=== PATIENT | female | born 1960 | race Caucasian/White ===

== ENCOUNTER 2019-08-19 13:39 | Outpatient (CLI) | payer OTHER ==
--- NOTE | 2019-08-19 14:04 | ULT ---
US Soft Tissue Other History: Pain Comparison: None. Findings: Real-time grayscale evaluation of the left popliteal fossa was performed. No popliteal cyst is appreciated. Impression: No popliteal cyst appreciated. MRI may be beneficial if clinically warranted.
== END 2019-08-19 13:40 | disposition home or self-care (01) ==
LOC: BICULT 13:39
PROVIDERS: ATTEND Family Medicine
DX: M25.562 Pain in left knee (principal)
CPT/HCPCS: 76999

== ENCOUNTER 2020-05-09 13:37 | Outpatient (CLI) | payer OTHER ==
--- NOTE | 2020-05-09 14:31 | ULT ---
US Renal Bilateral STANDARD: 05/09/2020 12:00 AM CLINICAL HISTORY: Recurrent urinary tract infections. STUDY: Renal ultrasound COMPARISON: None. FINDINGS: Right kidney: Echogenicity: Normal. Masses/cysts: None. Hydronephrosis: None. Calcifications: None. Length: 12.3 cm Left kidney: Echogenicity: Normal. Masses/cysts: None. Hydronephrosis: None. Calcifications: None. Length: 12.2 cm Limited visualization of the urinary bladder is unremarkable. IMPRESSION: Unremarkable renal ultrasound
== END 2020-05-09 13:38 | disposition home or self-care (01) ==
LOC: SCSULT 13:37 → BICULT 13:38
PROVIDERS: ATTEND Family Medicine
DX: N39.0 Urinary tract infection, site not specified (principal)
CPT/HCPCS: 76770

== ENCOUNTER 2020-06-01 08:38 | Outpatient (CLI) | payer OTHER ==
--- NOTE | 2020-06-01 16:18 | NM ---
EXAM: NM Parathyrd Planar W/Spect CT PROVIDED CLINICAL HISTORY: Hyperparathyroidism, unspecified. COMPARISON: None FINDINGS: CT SPECT images demonstrate a hypodense nodule left lobe of thyroid gland which is difficult to adequ ately measure on nonenhanced CT but appears to occupy the majority of the left lobe of the thyroid gland. This nodule in axial dimensions measures approximately 21 mm x 13 mm. There is evidence of inc reased uptake of radiotracer within this nodule. No additional areas of abnormal uptake of radiotracer are seen within either lobe of the thyroid gland. CT images demonstrate a mucous retention cyst in the left maxillary antrum. Postoperative changes rig ht shoulder are seen. Vascular calcifications are seen in the carotid arteries. Degenerative changes are seen in the spine. IMPRESSION: 1. Nodule left lobe of thyroid gland demonstrating uptake of radiotracer. Further evaluation with thy roid ultrasound is recommended. 2. There are no definite findings seen to suggest parathyroid adenoma based on this exam.
== END 2020-06-01 08:39 | disposition home or self-care (01) ==
LOC: NM 08:38
PROVIDERS: ATTEND Family Medicine
DX: E21.3 Hyperparathyroidism, unspecified (principal); E04.1 Nontoxic single thyroid nodule
CPT/HCPCS: 78072; A9500

== ENCOUNTER 2020-06-15 14:01 | Outpatient (CLI) | payer OTHER ==
--- NOTE | 2020-06-15 15:41 | ULT ---
EXAM: US Thyroid STANDARD PROVIDED CLINICAL HISTORY: Abnormal uptake within the thyroid gland on parathyroid scan. Thyroid ultrasound recommended. COMPARISON: Parathyroid scan on 06/01/2020. FINDINGS: Right lobe: Measurement-3.9 cm x 1.1 cm x 1.2 cm No nodules are seen in the right lobe of the thyroid gland. Left lobe: Measurement-3.8 cm x 1.9 cm x 1.5 cm A circumscribed heterogeneous nodule is seen involving the majority of the left lobe of the thyroid g land which measures 3 cm x 1.7 cm x 1.5 cm. This corresponds to area of uptake on parathyroid scan. Isthmus: Measurement-0.6 m in AP dimensions which is thickened IMPRESSION: TI RADS level 4 nodule left lobe of the thyroid gland. Fine-needle aspiration is recommended.
== END 2020-06-15 14:02 | disposition home or self-care (01) ==
LOC: BICULT 14:01
PROVIDERS: ATTEND Family Medicine
DX: R94.6 Abnormal results of thyroid function studies (principal); E04.1 Nontoxic single thyroid nodule
CPT/HCPCS: 76536

== ENCOUNTER 2020-06-28 12:05 | Outpatient (CLI) | payer OTHER ==
[2020-06-29 11:00] LABS: SARS-CoV-2 MS2 Positive; SARS-CoV-2 N Gene Negative; SARS-CoV-2 S Gene Negative; SARS-CoV-2 by NAA Not Detected (NotDetected); SARS-CoV-2 orf1ab Negative
== END 2020-06-28 12:06 | disposition home or self-care (01) ==
LOC: LABBT 12:05
PROVIDERS: ATTEND Family Medicine
DX: Z20.828 Contact with and (suspected) exposure to other viral communicable diseases (principal)
CPT/HCPCS: 87635; U0003

== ENCOUNTER 2020-07-02 09:17 | Day surgery (SDC) | payer OTHER ==
[2020-06-29 14:21] VITALS: BMI 46.3
[2020-07-02] MEDS ORDERED: Lidocaine 1% PF 5 ML VIAL ONE (10:13)
[2020-07-02] MEDS ORDERED: Sodium Bicarbonate 2.5 MEQ/5 ML VIAL ONE (10:14)
[2020-07-02 10:44] VITALS: BP 125/76; TEMP 98.1
--- NOTE | 2020-07-02 10:51 | ULT ---
Exam: Ultrasound guided fine-needle aspiration the left thyroid lobe COMPARISON: 06/15/2020 FINDINGS: Successful fine-needle aspiration of a solid hyperechoic mass in the left thyroid lobe. A t otal of 4, 25-gauge fine-needle aspirations were performed. No immediate or postprocedure complications TECHNIQUE: Consent obtained for ultrasound-guided fine-needle aspiration of a hyperechoic solid nodul e left thyroid lobe. Left neck was prepped and draped in a sterile fashion. 1% lidocaine, buffered with sodium bicarbonate was used for local anesthesia. Under ultrasound guidance, 4, 25-gauge fine-ne edle aspirations were performed. Patient tolerated the procedure well, without any postprocedure complications. IMPRESSION: Successful fine-needle aspiration. Final pathologic diagnosis is pending.
== END 2020-07-02 10:20 | disposition home or self-care (01) ==
LOC: ULT 09:17
PROVIDERS: ATTEND Family Medicine
PROC: 0G9G3ZX Drainage of Left Thyroid Gland Lobe, Percutaneous Approach, Diagnostic (ICD-10-PCS; principal; 2020-07-02)
DX: E04.1 Nontoxic single thyroid nodule (principal); E03.9 Hypothyroidism, unspecified; M19.90 Unspecified osteoarthritis, unspecified site; M10.9 Gout, unspecified; I10 Essential (primary) hypertension; F17.200 Nicotine dependence, unspecified, uncomplicated; E78.5 Hyperlipidemia, unspecified; E66.01 Morbid (severe) obesity due to excess calories; Z68.42 Body mass index [BMI] 45.0-49.9, adult; Z79.899 Other long term (current) drug therapy
CPT/HCPCS: 36415; 60100; 76942; 80053; 81001; 83970; 84439; 84443; 84481; 84550; 86376; 86800; 87086; 88173

== ENCOUNTER 2020-08-07 07:27 | Outpatient (CLI) | payer OTHER ==
[2020-08-07 08:09] LABS: Estimated GFR-MDRD - POC Greater than 90
--- NOTE | 2020-08-07 09:05 | CT ---
CT ABDOMEN AND PELVIS WITH AND WITHOUT IV CONTRAST: HISTORY: Hematuria with bilateral flank pain. FINDINGS: The lung bases are clear. The liver, spleen, pancreas, and adrenal glands are normal. No calcified gallstones are seen. No free air, free fluid, or lymphadenopathy is noted in the abdomen or pelvis. No calculi are seen in the kidneys, ureters, or the urinary bladder. No hydroureteral nephrosis is n oted on either side. There is normal contrast excretion to the ureters and urinary bladder. The patient is post hysterectomy. There are vascular calcifications without evidence of aneurysmal d ilatation of the abdominal aorta. The small bowel loops are not abnormally dilated. There is coloni c diverticulosis without diverticulitis. There are degenerative changes in the spine. IMPRESSION: 1. No CT evidence of urinary tract calculi/obstruction or renal mass. 2. Colonic diverticulosis. POS: OFF
[2020-08-07] MEDS ORDERED: Iopamidol 370 76% 100 ML VIAL ONE (10:16)
== END 2020-08-07 07:28 | disposition home or self-care (01) ==
LOC: BICCT 07:27
PROVIDERS: ATTEND Urology
DX: R31.29 Other microscopic hematuria (principal); K57.30 Diverticulosis of large intestine without perforation or abscess without bleeding
CPT/HCPCS: 74178; 82565; Q9967

== ENCOUNTER 2020-08-09 09:32 | Outpatient (CLI) | payer OTHER ==
--- NOTE | 2020-08-09 10:15 | ULT ---
EXAM: US Abdominal CLINICAL HISTORY: Right upper quadrant pain. COMPARISON: None. FINDINGS: Pancreas: Obscured by bowel gas IVC: Visualized IVC has a normal caliber. Aorta: Visualized aorta has a normal caliber. Liver:Increased echogenicity of liver likely due to areas of hepatic steatosis with additional areas of fatty sparing. Limited-for hepatic masses and intrahepatic biliary dilatation. Gallbladder: No sonographic evidence of cholelithiasis, gallbladder wall thickening or pericholecysti c fluid. Timmons's sign:Negative CBD: Limited evaluation the common bile duct. Portal vein: Patent. Appropriate directional flow. Right kidney: Normal cortical echotexture. No hydronephrosis Right kidney measuring 12.3 x 4.9 x 6. 0 cm in length. Left kidney: Normal cortical echotexture. No hydronephrosis. Incidental prominent right renal pelvis Left kidney measuring 5.8 x 12.3 x 5.3 cm in length Spleen: Normal echotexture, measuring 8.8 cm IMPRESSION: 1. Hepatic steatosis with areas of fatty sparing. 2. No sonographic evidence of cholelithiasis or cholecystitis. 3. No evidence of hydronephrosis. Incidental prominent right renal pelvis.
== END 2020-08-09 09:33 | disposition home or self-care (01) ==
LOC: BICULT 09:32
PROVIDERS: ATTEND Family Medicine
DX: R10.11 Right upper quadrant pain (principal); K76.0 Fatty (change of) liver, not elsewhere classified
CPT/HCPCS: 93975

== ENCOUNTER 2020-08-14 10:39 | Outpatient (CLI) | payer OTHER ==
[~2020-08-14 10:39] MED LIST: Iopamidol 370 76% 100 ML VIAL ONE
[2020-08-14 11:04] LABS: Estimated GFR-MDRD - POC Greater than 90
--- NOTE | 2020-08-14 12:00 | CT ---
CT NECK WITH AND WITHOUT CONTRAST: (Parathyroid protocol) DATE: 08/14/2020 HISTORY: [id number] with hyperparathyroidism. TECHNIQUE: Precontrast scan, 25 seconds postcontrast scan, and 65 second postcontrast scan, from several centime ters inferior to the jarrett to the skull base. Coronal and sagittal reconstructions. FINDINGS: There is little intrinsic iodine content in the thyroid gland, which makes this study is slightly dif ficult to distinguish thyroidal tissue and thyroidal nodules from potential parathyroid adenomas. Just lateral to the left tracheoesophageal groove at the C7-T1 junction, posterior to the left lobe o f the thyroid gland, there is a approximately 1.1 x 0.6 x 1.3 cm enhancing nodule. It may not have intrinsic iodine on the precontrast scan. (Axial images 43 and 44 of 92, series 3; 63, 64, and 65 of 137 series 2; sagittal image 62 of 139 series 6; coronal image 69 of 132 series 9; coronal image 67 of 132 series 5). On the sestamibi scintigraphy and SPECT performed on 06/01/2020, there was high uptake involving a dom inant left thyroid nodule located anterior to this, with the uptake activity "bleeding" over into surrounding regions on the SPECT images, such that it is not possible to determine whether this enhan cing nodule has high uptake of sestamibi or not. IMPRESSION: Nodule close to the left tracheoesophageal groove posterior to the dominant nodule in the left lobe o f the thyroid gland, is an intermediate candidate for parathyroid adenoma.
== END 2020-08-14 10:40 | disposition home or self-care (01) ==
LOC: BICCT 10:39
PROVIDERS: ATTEND Specialist
DX: E21.3 Hyperparathyroidism, unspecified (principal); E04.1 Nontoxic single thyroid nodule; J39.8 Other specified diseases of upper respiratory tract
CPT/HCPCS: 70492; 82565

== ENCOUNTER 2020-08-23 09:37 | Outpatient (CLI) | payer OTHER ==
--- NOTE | 2020-09-13 09:14 | MMO ---
Bilateral MAMMO Bilat Screen [facility]. CLINICAL HISTORY: Patient is 60 years old and is seen for screening. The patient has no family history of breast cancer. The patient has no personal history of cancer. VIEWS: The views performed were: bilateral craniocaudal with tomosynthesis and bilateral mediolateral oblique with tomosynthesis. FILMS COMPARED: The present examination has been compared to a prior imaging study performed at [facility] on 12/08/2017. This study has been interpreted with the assistance of computer-aided detection. MAMMOGRAM FINDINGS: There are scattered fibroglandular densities. There is suggestion of a new nodular density in the left outer breast. In the right breast, there are no suspicious masses, calcifications or areas of architectural distortion. IMPRESSION: FINDING IN THE LEFT BREAST REQUIRES ADDITIONAL EVALUATION. SPOT COMPRESSION IS RECOMMENDED. AN ULTRASOUND EXAM IS RECOMMENDED. ADDITIONAL IMAGING. THE RESULTS OF THIS EXAM WERE SENT TO THE PATIENT. ACR BI-RADS Category 0 - Incomplete: Need additional imaging evaluation. [facility] will notify the patient of the need for additional imaging services. MAMMOGRAPHY NOTE: 1. A negative mammogram report should not delay a biopsy if a dominant of clinically suspicious mass is present. 2. Approximately 10% to 15% of breast cancers are not detected by mammography. 3. Adenosis and dense breasts may obscure an underlying neoplasm. Reported by: PATRICIA WILSON MD Electonically Signed: [id number]
== END 2020-08-23 09:38 | disposition home or self-care (01) ==
LOC: BICMAMMO 09:37
PROVIDERS: ATTEND Family Medicine
DX: Z12.31 Encounter for screening mammogram for malignant neoplasm of breast (principal); R92.2 Inconclusive mammogram
CPT/HCPCS: 77063; 77067

== ENCOUNTER 2020-09-25 13:59 | Outpatient (CLI) | payer OTHER ==
--- NOTE | 2020-09-25 14:36 | MMO ---
Left Breast MAMMO Unilat Diag DDI LT+RACQUEL. CLINICAL HISTORY: Patient is 60 years old and is seen for diagnostic exam. The patient has no family history of breast cancer. The patient has no personal history of cancer. VIEWS: The views performed were: left craniocaudal with tomosynthesis; left mediolateral oblique with tomosynthesis; and left mediolateral with tomosynthesis. FILMS COMPARED: The present examination has been compared to prior imaging studies performed at [facility] on 08/23/2020 and 09/25/2020, and at [facility] on 12/08/2017. This study has been interpreted with the assistance of computer-aided detection. MAMMOGRAM FINDINGS: There are scattered fibroglandular densities. There is an equal density, oval mass measuring 6 millimeters with circumscribed margins seen in the left breast at 3 o'clock. Sonographic findings suggest a debris filled cyst, though this is not completely certain. IMPRESSION: MASS IN THE LEFT BREAST IS PROBABLY BENIGN. FOLLOW-UP IN 6 MONTHS IS RECOMMENDED. THE RESULTS OF THIS EXAM WERE SENT TO THE PATIENT. ACR BI-RADS Category 3 - Probably benign finding - short interval follow-up suggested. [facility] will notify the patient of the need for additional imaging services. MAMMOGRAPHY NOTE: 1. A negative mammogram report should not delay a biopsy if a dominant of clinically suspicious mass is present. 2. Approximately 10% to 15% of breast cancers are not detected by mammography. 3. Adenosis and dense breasts may obscure an underlying neoplasm. Reported by: STELLA LASSITER MD Electonically Signed: [id number]
--- NOTE | 2020-09-25 14:46 | ULT ---
EXAM: US Breast Limited Lt PROVIDED CLINICAL HISTORY: Abnormal mammogram COMPARISON: None FINDINGS: Limited sonographic interrogation of the left breast in the 3:00 location was performed. There is an oval, circumscribed hypoechoic mass with enhanced through transmission in this location, measuring approximately 6 mm. There is no internal flow, shadowing or other concerning finding. This is wider t [place] tall. IMPRESSION: Findings most compatible with a debris-filled cyst. Six-month follow-up is recommended. BI-RADS 3 -- probably benign, 6-month follow-up
== END 2020-09-25 14:00 | disposition home or self-care (01) ==
LOC: BICMAMMO 13:59
PROVIDERS: ATTEND Radiology Diagnostic Radiology
DX: R92.2 Inconclusive mammogram (principal); N63.20 Unspecified lump in the left breast, unspecified quadrant
CPT/HCPCS: G0279

== ENCOUNTER 2021-01-02 11:57 | Outpatient (CLI) | payer OTHER | END 2021-01-02 11:58 | disposition home or self-care (01) | LOC: BICRAD 11:57 | PROVIDERS: ATTEND Family Medicine | DX: M25.562 Pain in left knee (principal); M17.12 Unilateral primary osteoarthritis, left knee ==

== ENCOUNTER 2021-01-24 08:52 | Outpatient (CLI) | payer OTHER | END 2021-01-24 08:53 | disposition home or self-care (01) | LOC: BICMAMMO 08:52 | PROVIDERS: ATTEND Urology | DX: Z13.820 Encounter for screening for osteoporosis (principal); E83.52 Hypercalcemia; R82.998 Other abnormal findings in urine; M81.0 Age-related osteoporosis without current pathological fracture | CPT/HCPCS: 77080 ==

== ENCOUNTER 2021-02-19 11:36 | Outpatient (CLI) | payer OTHER | END 2021-02-19 11:37 | disposition home or self-care (01) | LOC: BICRAD 11:36 | PROVIDERS: ATTEND Urology | DX: R82.998 Other abnormal findings in urine (principal) | CPT/HCPCS: 74018 ==

== ENCOUNTER 2022-09-10 08:26 | Outpatient (CLI) | payer OTHER | END 2022-09-10 08:27 | disposition home or self-care (01) | LOC: SCSMRI 08:26 | PROVIDERS: ATTEND Family Medicine | DX: M86.9 Osteomyelitis, unspecified (principal); R60.0 Localized edema ==

== ENCOUNTER 2023-05-20 13:42 | Outpatient (CLI) | payer OTHER ==
[2023-05-20 15:01] LABS: #Basophils 0.1 10x3/uL (0.0-0.2); #Eosinphils 0.2 10x3/uL (0.0-0.5); #Monocytes 0.7 10x3/uL (0.0-1.1); #Neutrophils 5.6 10x3/uL (1.5-8.4); %Basophils 1.1 % (0.0-2.0); %Eosinophils 2.7 % (0.0-6.0); %Lymphocytes 25.8 % (18.0-47.0); %Monocytes 7.4 % (0.0-10.0); %Neutrophils 62.3 % (40.0-75.0); Hematocrit 41.5 % (34.9-44.5); Hemoglobin 13.7 g/dL (12.0-15.5); Mean Corpuscular Hemoglobin 30.4 pg (27.0-33.0); Mean Platelet Volume 10.5 fl (7.4-10.4); Platelet Count 257 10x3/uL (150-450); Red Blood Cell (RBC) Count 4.51 10x6/uL (3.90-5.03)
[2023-05-20 15:11] LABS: Anion Gap 16 mmol/L (10-20); BUN (Urea Nitrogen) 18 mg/dL (9.8-20.1); Calc. Creatinine Clearance 0 mL/min (70-130); Calcium 9.8 mg/dL (7.8-10.44); Carbon Dioxide 18 mmol/L (23-31); Chloride 109 mmol/L (98-107); Estimated GFR 97; Glucose 181 mg/dL (80-115); Potassium 4.1 mmol/L (3.5-5.1); Sodium 139 mmol/L (136-145)
== END 2023-05-20 13:43 | disposition home or self-care (01) ==
LOC: LABBT 13:42
PROVIDERS: ATTEND Specialist
DX: Z01.818 Encounter for other preprocedural examination (principal); C50.912 Malignant neoplasm of unspecified site of left female breast
CPT/HCPCS: 71046; 80048; 85025; 93005; 93010

== ENCOUNTER 2023-08-25 14:41 | Outpatient (CLI) | payer OTHER | END 2023-08-25 14:42 | disposition home or self-care (01) | LOC: BICULT 14:41 | PROVIDERS: ATTEND Family Medicine | DX: E03.9 Hypothyroidism, unspecified (principal); E04.1 Nontoxic single thyroid nodule | CPT/HCPCS: 76536 ==

== ENCOUNTER 2023-09-11 08:47 | Outpatient (CLI) | payer OTHER | END 2023-09-11 08:48 | disposition home or self-care (01) | LOC: NM 08:47 | PROVIDERS: ATTEND Family Medicine | DX: E21.5 Disorder of parathyroid gland, unspecified (principal); E04.1 Nontoxic single thyroid nodule | CPT/HCPCS: 78072; A9500 ==